=== PATIENT | male | born 1970 | race Two or more races ===

== ENCOUNTER 2025-04-22 15:24 | Outpatient (REF) | payer MEDICAID, SELFPAY ==
--- OUTSIDE RECORDS SUMMARY | 2025-04-22 16:02 | XMS_ITS | Clinical Summary ---
Author Organization [employer] Address [address] [place] [address] Care Team Providers Care Helper Marble Finisher Name Role Phone Unavailable Primary Care Provider Unavailabl e Allergies No known active allergies Medications glimepiride (Amaryl) 4 MG tabletIndication s:Type 2 diabetes mellitus without complication, without long-term current use of insulin (CMS/HCC) Take 1 tablet (4 mg) by mouth before breakfast. 30 tablet 2 04/21/2025 Active pravastatin (Pravachol) 40 MG tabletIndication s:Type 2 diabetes mellitus without complication, without long-term current use of insulin (CMS/HCC) Take 1 tablet (40 mg) by mouth Once per day. 30 tablet 2 04/21/2025 5 Active pioglitazone (Actos) 30 MG tabletIndication s:Type 2 diabetes mellitus without complication, without long-term current use of insulin (CMS/HCC) Take 1 tablet (30 mg) by mouth Once per day. 30 tablet 2 04/21/2025 Active metFORMIN XR (Glucophage-XR) 750 MG 24 hr tabletIndication s:Type 2 diabetes mellitus without complication, without long-term current use of insulin (CMS/HCC) Take 1 tablet (750 mg) by mouth 2 times daily. Do not crush, chew, or split. 60 tablet 2 04/21/2025 5 Active Encounters Date Type Department Care Team Description 04/21/2025 6:20 PM EDT Office Visit [facility] [address] [address] Eamon Grove MD Type 2 diabetes mellitus without complication, without long-term current use of insulin (CMS/HCC) (Primary Dx) 04/21/2025 Travel 02/26/2025 Telephone [facility] [address] [place] [phone] Riky Holly MD new patient appt. 02/25/2025 Population Health Risk Score [facility] () Department [address] [place] [id number] Provider, Population Health Generic from Last 3 Months Social History Tobacco Use Types Packs/Day Years Used Date Smoking Tobacco: Never Assessed Sex and Gender Information Value Date Recorded Sex Assigned at Male 04/21/2025 4:33 PM EDT Legal Sex Male 2:12 AM EDT Gender Identity Male 04/21/2025 4:33 PM EDT Sexual Orientation Straight 04/21/2025 4: 33 PM EDT Last Filed Vital Signs Vital Sign Reading Time Taken Comments Blood Pressure 131/64 04/21/2025 5:56 PM EDT Pulse 68 04/21/2025 5:56 PM EDT Temperature - - Respiratory Rate 20 04/21/2025 5:56 PM EDT Oxygen Saturation 100% 04/21/2025 5:56 PM EDT Inhaled Oxygen Concentration - - Weight 92.1 kg (203 lb) 04/21/2025 5:56 PM EDT Height - - Body Mass Index - - Plan of Treatment Upcoming Encounters Date Type Department Care Team (Late st Contact Info) Description 06/18/2025 9:30 AM EDT Office Visit [facility] [address] [place] [phone] Riky Holly MD [address] [place] [phone] Health Maintenance Due Date Last Done Comments CT Colonography 1968 Colonoscopy 1968 Colorectal Cancer Screening 1968 Depression Screening 1968 Diabetes: Hemoglobin A1C 1968 FIT DNA/Cologuard 1968 FIT 1968 FOBT 1968 HIV Screening 1968 Lipid Panel 1968 SDOH Screening 1968 Sigmoidoscopy 1968 Disability Screening 1968 Diabetes: Foot Exam 1978 Eye Exam 1978 Alcohol/Substance Use Screening 1980 Tobacco Screening 1980 Hepatitis C Screening 1986 DTaP/Tdap/Td Vaccines (1 - Tdap) 1987 Diabetes: Urine Protein Screening 1987 Hepatitis B Vaccines (1 of 3 - 19+ 3-dose series) 1987 Pneumococcal Vaccine: 50+ Ye ars (1 of 2 - PCV) 1987 Zoster Vaccines (1 of 2) 2018 COVID-19 Vaccine ( - 2023-2 5 season) 2024 Influenza Vaccine (#1) 2024 RSV Patients and Pa tients Aged 60 years or older (1 - 1-dose 75+ series) 2043 HIB Vaccines Aged Out No longer eligi ble based on patient's age to complete this topic HPV Vaccines Aged Out No longer eligi ble based on patient's age to complete this topic Hepatitis A Vaccines Aged Out No long er eligible based on patient's age to complete this topic IPV Vaccines Aged Out No longer eligi ble based on patient's age to complete this topic Meningococcal B Vaccine Aged Out No l onger eligible based on patient's age to complete this topic Meningococcal Vaccine Aged Out No siri gerri eligible based on patient's age to complete this topic RSV under 20 months Aged Out No longe r eligible based on patient's age to complete this topic Rotavirus Vaccines Aged Out No longer eligible based on patient's age to complete this topic Procedures Procedure Name Priority Date/Time Associated Diagnosis Comments POCT GLUCOSE Routine 04/21/2025 7:59 PM EDT Type 2 diabetes mellitus without complication, without long-term current use of insulin ([facility]) from Last 3 Months Results * (ABNORMAL) POCT Glucose (04/21/2025 7:59 PM EDT) Glucose Blood, POC 261(A) 60 - 200 mg/dL QC Media Lot # Comment:[id number] Lot# Expiration Date Comment:05/14/2025 Blood Capillary blood specimen / Unknown 04/21/2025 7:59 PM EDT Eamon Grove MD POINT OF CARE TEST ENTER/EDIT OR DERABLES Final Result from Last [address] [place] [place] [address] C3
[2025-04-22 16:15] LABS: MANUAL DIFF FLAG NO
[2025-04-22 16:26] LABS: Basophils Absolute Auto 0.1 X10*3/uL (0.0-0.2); Basophils Percent Auto 0.9 % (0-2); Eosinophils Absolute Auto 0.1 X10*3/uL (0.0-0.4); Eosinophils Percent Auto 1.6 % (0-4); Hematocrit 37.8 % (42.0-52.0); Imm Gran Abs Auto 0.01 X10*3/uL (0.00-0.03); Imm Gran Pct Auto 0.1 % (0.0-0.4); Lymphocytes Absolute Auto 2.6 X10*3/uL (1.2-4.9); Lymphocytes Percent Auto 33.5 % (20-40); Mean Corpuscular HGB Conc 34.4 g/dl (31.0-36.0); Mean Corpuscular Hemoglobin 30.4 pg (27.0-33.0); Mean Corpuscular Volume 88.3 fL (80.0-98.0); Mean Platelet Volume 10.3 fL (9.4-12.4); Monocytes Absolute Auto 0.5 X10*3/uL (0.1-1.2); Monocytes Percent Auto 6.6 % (2-11); Neutrophils Absolute Auto 4.4 x10*3/uL (2.0-8.3); Neutrophils Percent Auto 57.3 % (45-73); Platelet Count 294 X10*3/uL (160-400); Red Blood Count 4.28 X10*6/uL (4.60-5.80); Red Cell Distribution Width 12.9 % (11.0-16.0); White Blood Count 7.7 X10*3/uL (4.8-10.8)
[2025-04-22 16:39] LABS: Estimated Average Glucose 212 mg/dL; Total Hemoglobin (HGBA1C) 3378.2839 umol/L
[2025-04-22 16:46] LABS: Microalbum/Creatinine Ratio Ur 120.9 ug/mg cr (<30)
[2025-04-22 16:50] LABS: Alanine Aminotransferase 19 U/L (0-40); Albumin Level 4.2 g/dL (3.5-5.0); Alkaline Phosphatase 77 U/L (39-117); Anion Gap 11 (12-20); Aspartate Amino Transferase 20 U/L (5-37); Bilirubin Total 0.4 mg/dL (0.0-1.0); Blood Urea Nitrogen 22 mg/dL (9-16); Calcium 8.7 mg/dL (8.4-10.2); Carbon Dioxide 26 mmol/L (22-29); Chloride 105 mmol/L (96-108); Cholesterol 150 mg/dL (<200); Estimated Glomerular Filt Rate > 60; Glucose Random 146 mg/dL (60-115); HDL Cholesterol 51 mg/dL (>40); LDL Cholesterol Calculated 86 mg/dL (<100); Potassium 4.2 mmol/L (3.3-5.1); Sodium 138 mmol/L (135-145); Triglycerides 66 mg/dL (<150)
== END 2025-04-22 15:25 | disposition home or self-care (01) ==
LOC: HO.HHCL 15:24
PROVIDERS: Visit Provider Family Medicine
DX: E11.9 Type 2 diabetes mellitus without complications (principal)
CPT/HCPCS: 36415; 80053; 80061; 82043; 82570; 83036; 85025

== ENCOUNTER 2025-06-18 10:18 | Outpatient (REF) | payer MEDICAID, SELFPAY ==
--- OUTSIDE RECORDS SUMMARY | 2025-06-18 11:05 | XMS_ITS | Continuity of Care Document ---
Author Organization [employer] [facility] [facility] Address [address] [place], [place] Phone [phone] Care Team Providers Care Supervisor Sewing Department Name Role Phone Beatrice Rosa MD Care Team Information House Moving Supervisor U navailable JESSICA VILLA M.D. Care Team Information Rec eiver Unavailable Beatrice Rosa MD Primary Care Physician Unavailab le Problems Active Problems Provider Date Pure hypercholesterolemia Malik Vargas Onset: 05/06/2015 Tobacco user Jessica Villa M.D. Onset: 0 05/06/2015 Diabetes mellitus Jessica Villa M.D. Onset: 05/06/2015 Social History Type Date Description Comments Sex Male Sex Unknown Allergies and adverse reactions Description No Known Drug Allergies Medications Active Medications SIG Qnty Indications Ordering Provider Date Freestyle Lite TestStrips 1 strip every day 100units E11.8 Jessica Villa M.D. 05/06/2015 [id number] Tablets 2 tab by mouth every day 60tabs E11.8 Jessica Villa M.D. 05/06/2015 Metformin HCL [id number] Tablets ER 24HR 1 tab by mouth twice a day Beatrice Rosa MD Pioglitazone [id number] Tablets take 1 tablet once daily Unknown Pravastatin [id number] Tablets 1 by mouth every day Beatrice Rosa MD Ciprodex0.3-0.1% Suspension Unknown History Medications Bupropion HCL ER (SR)150mg Tablets ER 12HR 1 by mouth every day 90tabs 305.1 Jessica Villa M.D. 05/06/2015 - 07/08/2015 [id number] Capsules Unknown - 05/06/2015 Afluria Preservative Free0.5ml Christal Unknown - 05/06/2015 [id number] Tablets take 1 tablet by mouth once daily Unknown - 05/06/2015
--- OUTSIDE RECORDS SUMMARY | 2025-06-18 11:05 | XMS_ITS | Clinical Summary ---
Author Organization [employer] Address [address] [facility] [address] [place] [address] Care Team Providers Care Chisel Trimmer Name Role Phone Riky Holly MD Primary Care Provide r Allergies No known active allergies Medications lisinopril 5 MG tabletIndications: Type 2 diabetes mellitus without complication, without long-term current use of insulin (CMS/[facility]),Microalb uminuria Take 1 tablet (5 mg) by mouth Once per day. 30 tablet 11 06/18/20 026 Active glimepiride (Amaryl) 4 MG tabletIndications: Type 2 diabetes mellitus without complication, without long-term current use of insulin (CMS/HCC) Take 1 tablet (4 mg) by mouth before breakfast . 30 tablet 2 06/18/20 25 025 Active metFORMIN XR (Glucophage-XR) 750 MG 24 hr tabletIndications: Type 2 diabetes mellitus without complication, without long-term current use of insulin (CMS/[facility]) Take 1 tablet (750 mg) by mouth 2 times daily. Do not crush, chew, or split. 60 tablet 2 06/18/20 25 025 Active pioglitazone (Actos) 30 MG tabletIndications: Type 2 diabetes mellitus without complication, without long-term current use of insulin (CMS/HCC) Take 1 tablet (30 mg) by mouth Once per day. 30 tablet 2 06/18/20 25 025 Active pravastatin (Pravachol) 40 MG tabletIndications: Mixed hyperlipidemia Take 1 tablet (40 mg) by mouth Once per day. 30 tablet 2 06/18/20 25 025 Active FREESTYLE LITE test stripIndications:T ype 2 diabetes mellitus without complication, without long-term current use of insulin ([facility]) Use to test blood sugar 2 times daily 100 each 12 06/18/20 25 026 Active Lancets miscIndications:Ty pe 2 diabetes mellitus without complication, without long-term current use of insulin ([facility]) Use to test blood sugar 2 times daily 100 each 06/18/20 25 Active Alcohol Swabs 70 % padsIndications:Ty pe 2 diabetes mellitus without complication, without long-term current use of insulin ([facility]) Use to test blood sugar 2 times daily 100 each 06/18/20 25 Active Blood Glucose Monitoring Suppl (FreeStyle [place] Lite) w/Device kitIndications:Typ e 2 diabetes mellitus without complication, without long-term current use of insulin ([facility]) Use to test blood sugar 2 times daily 1 kit 06/18/20 25 Active glimepiride (Amaryl) 4 MG tabletIndications: Type 2 diabetes mellitus without complication, without long-term current use of insulin ([facility]) Take 1 tablet (4 mg) by mouth before breakfast . 30 tablet 2 04/21/20 025 Discontinued(Re order (will not trigger notification to Pharmacy)) pravastatin (Pravachol) 40 MG tabletIndications: Type 2 diabetes mellitus without complication, without long-term current use of insulin ([facility]) Take 1 tablet (40 mg) by mouth Once per day. 30 tablet 2 04/21/20 025 Discontinued(Re order (will not trigger notification to Pharmacy)) pioglitazone (Actos) 30 MG tabletIndications: Type 2 diabetes mellitus without complication, without long-term current use of insulin ([facility]) Take 1 tablet (30 mg) by mouth Once per day. 30 tablet 2 04/21/20 025 Discontinued(Re order (will not trigger notification to Pharmacy)) metFORMIN XR (Glucophage-XR) 750 MG 24 hr tabletIndications: Type 2 diabetes mellitus without complication, without long-term current use of insulin ([facility]) Take 1 tablet (750 mg) by mouth 2 times daily. Do not crush, chew, or split. 60 tablet 2 04/21/20 25 025 Discontinued(Re order (will not trigger notification to Pharmacy)) Active Problems Problem Noted Date Diagnosed Date Type 2 diabetes mellitus wit hout complication, without long-term current use of insulin 06/18/2025 Assessment & Plan (06/18/2025 9:47 AM EDT): Patient here to establish his primary prison Diabetic Hgb A1c today: 8.7 Glucometer: did not bring one. Sent one to Pharmacy Microalbumin: 04/22/2025 120. Will start Low dose Lisinopril Eye exam: referred Regimen: Metformin 750 mg po BID, Glimepiride 4 mg daily, Actos 30 mg po daily Plan: Start Lisinopril 5 mg po daily ( microalbuminuria ) Hyperlipidemia 06/18/2025 Assessment & Plan (06/18/2025 9:25 AM EDT): Pt with elevated lipids Lab Results Component Value Date TRIG 66 04/22/2025 CHOL 150 04/22/2025 LDLCHOLCAL 86 04/22/2025 HDL 51 04/22/2025 On Pravastatin 40 mg po daily Plan: continue current regimen Preventative health care 06/18/2025 Assessment & Plan (06/18/2025 9:51 AM EDT): PSA: ordered Colorectal cancer screen: refused, no specific reason Counseled about colon cancer Obesity (BMI 30-39.9) 06/18/2025 Assessment & Plan (06/18/2025 9:36 AM EDT): Patient has been counseled and educated about diet and exercise. Personal goal of weight loss discussedPatient has comorbidity of: DM Dietary Recommendations: Fruits, vegetables, whole grains, protein foods, and fat-free or low-fat dairy products are healthy choices. Eat different types of protein foods in your diet. This can include seafood, lean meats, poultry, beans, peas, lentils, nuts, seeds, soy products, and eggs. Limit foods and beverages higher in added sugars, saturated fat, and sodium. Exercise Recommendations: At least 150 minutes of moderate-intensity physical activity per week, or an equivalent combination of moderate- and vigorous-intensity activity Smoker 06/18/2025 Assessment & Plan (06/18/2025 9:59 AM EDT): Contemplative, not ready to quit yet 1 ppd > 40 yrs 40 pack years Referred to lung cancer screen progrtam at [facility] Agreeable to have low dose CT Encounters Date Type Department Care Team Description 06/18/2025 9:30 AM EDT Office Visit [facility] [address] [place] [phone] Riky Holyl MD Type 2 diabetes mellitus without complication, without long-term current use of insulin (CMS/HCC) (Primary Dx); Mixed hyperlipidemia; Microalbuminuria; Preventative health care; Colon cancer screening; Obesity (BMI 30-39.9); Dietary counseling; Exercise counseling; Smoker; Encounter for immunization 06/18/2025 Travel 06/17/2025 Telephone [facility] [address] [place] [phone] Shelley Gallo [place] 06/11/2025 Patient Outreach [facility] [address] [place] [address] Riky Holly MD Pre-visit Planning ([facility] unable to reach [facility]) 04/24/2025 Results Follow-Up [facility] [address] [place] [phone] Eamon Grove MD POCT Glucose, Lipid Panel, Standard, CBC auto differential, Additional followed-up results: 3 04/21/2025 6:20 PM EDT Office Visit [facility] [address] [place] [phone] Eamon Grove MD Type 2 diabetes mellitus without complication, without long-term current use of insulin (CMS/HCC) (Primary Dx) 04/21/2025 Travel from Last 3 Months Immunizations Immunization Administration Dates Next Due Pneumococcal Conjugate PCV 20 06/18/2025 Tdap 06/18/2025 Social History Tobacco Use Types Packs/Day Years Used Date Smoking Tobacco: Every Day Cigarettes 1 40.6 Started: 1984 Smokeless Tobacco: Never Tobacco Cessation:Counseling Given: Yes Alcohol Use Standard Drinks/Week Comments Never 0 (1 standard drink = 0.6 oz pur e alcohol) Depression Answer Date Recorded Patient Health Questionnaire-9 Score 0 06/18/2025 Patient Health Questionnaire-9 Score 0 06/18/2025 Last PHQ-9: Questionnaire Data Not on file 0 06/18/2025 Housing Stability Answer Date Recorded What is your housing situation today? I have tello [place] 06/18/[address] you li ve. Do you have problems with any of the following? None of the above 06/18/2025 Food Insecurity Answer Date Recorded Within the past 12 months, y ou worried that your food would run out before you got money to buy more: Never True 06/18/2025 Within the past 12 months,th e food you bought just didn't last and you didn't have enough money to get more: Never True Transportation Answer Date Recorded In the past 12 months, has l ack of transportation kept you from medical appts, meetings, work or from getting things needed for daily living? No 06/18/2025 Utilities Answer Date Recorded In the past 12 months, has t he electric, gas, oil or water company threatened to shut off services in your home? No 06/18/2025 Depression Answer Date Recorded Patient Health Questionnaire-2 Score 0 06/18/2025 Internet Access Answer Date Recorded Internet Access Q1 Yes 06/18/2025 Internet Access Q2 Not on file 06/18/2025 Sex and Gender Information Value Date Recorded Sex Assigned at Male 04/21/2025 4:33 PM EDT Legal Sex Male 2:12 AM EDT Gender Identity Male 04/21/2025 4:33 PM EDT Sexual Orientation Straight 04/21/2025 4: 33 PM EDT Occupation Industry Job Start Date Job End Date [employer] Other Not on file Not on file Not on file Last Filed Vital Signs Vital Sign Reading Time Taken Comments Blood Pressure 124/68 06/18/2025 9:25 AM EDT Pulse 62 06/18/2025 9:25 AM EDT Temperature 36.8 C (98.2 F) 06/18/2025 9:25 AM EDT Respiratory Rate 14 06/18/2025 9:25 AM EDT Oxygen Saturation 99% 06/18/2025 9:25 AM EDT Inhaled Oxygen Concentration - - Weight 91.5 kg (201 lb 12.8 oz) 06/18/2025 9:25 AM EDT Height 172.7 cm (5' 8 ) 06/18/2025 9:25 AM EDT Body Mass Index 30.68 06/18/2025 9:25 AM EDT Plan of Treatment Health Maintenance Due Date Last Done Comments CT Colonography 1968 Colonoscopy 1968 Colorectal Cancer Screening 1968 FIT DNA/Cologuard 1968 FIT 1968 FOBT 1968 HIV Screening 1968 Sigmoidoscopy 1968 Diabetes: Foot Exam 1978 Eye Exam 1978 Alcohol/Substance Use Screening 1980 Hepatitis C Screening 1986 Hepatitis B Vaccines (1 of 3 - 19+ 3-dose series) 1987 Lung Cancer Screening 2018 Zoster Vaccines (1 of 2) 2018 COVID-19 Vaccine ( - 2023-2 5 season) 2024 Influenza Vaccine (#1) 2025 Diabetes: Hemoglobin A1C 09/18/2025 025, 04/22/2025 Diabetes: Urine Protein Screening 04/22/2026 04/22/2025 Lipid Panel 04/22/2026 04/22/2025 Depression Screening 06/18/2026 06/18/2025, 06/18/2025 Disability Screening 06/18/2026 06/18/2025 SDOH Screening 06/18/2026 06/18/2025 Tobacco Screening 06/18/2026 06/18/2025 DTaP/Tdap/Td Vaccines (2 - T d or Tdap) 06/18/2035 06/18/2025 RSV Patients and Patients Aged 60 years or older (1 - 1-dose 75+ series) 2043 Pneumococcal Vaccine: 50+ Years Completed 06/18/2025 HIB Vaccines Aged Out No longer eligi [...] Name Priority Date/Time Associated Diagnosis Comments POCT GLYCATED HEMOGLOBIN, TOTAL Routine 06/18/2025 9:37 AM EDT Type 2 diabetes mellitus without complication, without long-term current use of insulin (CMS/HCC) POCT GLUCOSE Routine 06/18/2025 9:37 AM EDT Type 2 diabetes mellitus without complication, without long-term current use of insulin (CMS/HCC) ALBUMIN, RANDOM URINE W/CREATININE Routine 04/22/2025 3:30 PM EDT Type 2 diabetes mellitus without complication, without long-term current use of insulin (CMS/HCC) HEMOGLOBIN A1C Routine 04/22/2025 3:30 PM EDT Type 2 diabetes mellitus without complication, without long-term current use of insulin (CMS/HCC) COMPREHENSIVE METABOLIC PANEL Routine 04/22/2025 3:30 PM EDT Type 2 diabetes mellitus without complication, without long-term current use of insulin (CMS/HCC) LIPID PANEL, STANDARD Routine 04/22/2025 3:30 PM EDT Type 2 diabetes mellitus without complication, without long-term current use of insulin (CMS/HCC) CBC WITH AUTO DIFFERENTIAL Routine 04/22/2025 1:50 PM EDT Type 2 diabetes mellitus without complication, without long-term current use of insulin (CMS/HCC) POCT GLUCOSE Routine 04/21/2025 7:59 PM EDT Type 2 diabetes mellitus without complication, without long-term current use of insulin (CMS/HCC) from Last 3 Months Results * (ABNORMAL) POCT A1C (06/18/2025 9:37 AM EDT) Hemoglobin A1C 8.7(A) 4.0 - 5.7 % Blood 06/18/2025 9:37 AM EDT Riky Cm MD POINT OF CARE TEST EN TER/EDIT ORDERABLES Final Result * POCT glucose manually resulted (06/18/2025 9:37 AM EDT) Only the most recent of2 resultswithin the time period is included. Glucose Blood, POC 192 60 - 200 mg/dL Blood Capillary blood specimen / Unknown 06/18/2025 9:37 AM EDT Riky Cm MD POINT OF CARE TEST EN TER/EDIT ORDERABLES Final Result * (ABNORMAL) Albumin, Random Urine W/Creatinine (04/22/2025 3:30 PM EDT) Creatinine, Urine 259.70 mg/dL [facility] Microalbumin Urine 314.0 mg/L [facility] Microalbum Creatinine Ratio Ur 120.9(H) <30 ug/mg cr [facility] Comment:Albumin/Creatinine R atio Reference Ranges: Normal: < 30 ug/mg creatinine Microalbuminuria: 30 - 300 ug/mg creatinineClinical Albuminuria: > 300 ug/mg creatinine Urine (Urine, Random) 04/22/2025 3:30 PM EDT 04/22/2025 4:11 PM EDT Eamon Grove MD LAB URINE ORDERABLES Final Resul t [facility] [address] [place] [phone] * (ABNORMAL) Hemoglobin A1c (04/22/2025 3:30 PM EDT) Hemoglobin A1c 9.0(H) <6.0 % [facility] Comment:Hemoglobin A1C Refer ence Range Adults: 4.8 - 6.0 % Non diabetic: < 6.0 % Goal: < 7.0 %Additional Action Suggested: > 8.0 %Note: Hemoglobin A1c results are invalid for patients with abnormal amounts of HbF. Blood transfusions may impact the HbA1c concentration in the patient sample. Estimated Average Glucose 212 mg/dL [facility] Comment:eAG = Estimated ave rage glucose which is %A1C expressed asaverage glucose, using the formula of the [id number] Glucose study (ADAG), Diabetes Care, Vol.31,#8,Jun. 2007 Blood Venous blood specimen / Unknown 04/22/2025 3:30 PM EDT 04/22/2025 4:12 PM EDT us Eamon Grove MD LAB BLOOD ORDERABLES Final Resul t [facility] [address] [place] [phone] * Lipid Panel, Standard (04/22/2025 3:30 PM EDT) Triglycerides 66 <150 mg/dL [facility] Comment:Desirable Triglyceri de: less than 150 mg/dLBorderline High Triglyceride 150-199 mg/dLHigh Triglyceride: 200-499 mg/dLVery High Triglyceride: greater than or equal to 5OO mg/dL Cholesterol 150 <200 mg/dL [facility] Comment:Desirable Cholestero l: less than 200 mg/dLBorderline High Cholesterol: 200-239 mg/dLHigh Cholesterol: greater than 239 mg/dL LDL Cholesterol Calculated 86 <100 mg/dL [facility] Comment:Desirable LDL: less than 100 mg/dLNear Optimal/Above Optimal LDL: 110- 129 mg/dLBorderline High LDL: 130-159 mg/dLHigh LDL: 160-189 mg/dLVery High LDL: greater than or equal to 190 mg/dL HDL Cholesterol 51 >40 mg/dL [facility] Comment:Desirable HDL: great er than 40 mg/dL Note: This HDL assay may give artificially low results in patients with liver disease. Blood Venous blood specimen / Unknown 04/22/2025 3:30 PM EDT 04/22/2025 4:12 PM EDT Eamon Grove MD LAB BLOOD ORDERABLES Final Resul t [facility] [address] [place] [phone] * (ABNORMAL) Comprehensive Metabolic Panel (04/22/2025 3:30 PM EDT) Sodium 138 135 - 145 mmol/L [facility] Potassium 4.2 3.3 - 5.1 mmol/L [facility] Chloride 105 96 - 108 mmol/L [facility] Carbon Dioxide 26 22 - 29 mmol/L [facility] Anion Gap 11(L) 12 - 20 [facility] Urea Nitrogen (BUN) 22(H) 9 - 16 mg/dL [facility] Creatinine, Serum 0.89 0.5 - 1.4 mg/dL [facility] Estimated Glomerular Filt Rate >60 [facility] Comment:Chronic Kidney Disea se: Estimated GFR < 60 mL/min/[id number] Kidney Disease: Estimated GFR < 15 mL/min/1.73m2 Glucose 146(H) 60 - 115 mg/dL [facility] Calcium 8.7 8.4 - 10.2 mg/dL [facility] Bilirubin, Total 0.4 0.0 - 1.0 mg/dL [facility] Aspartate Amino Transferase 20 5 - 37 U/L [facility] Alanine Aminotransferase 19 0 - 40 U/L [facility] Total Protein 7.0 6.5 - 8.0 g/dL [facility] Albumin Level 4.2 3.5 - 5.0 g/dL [facility] Alkaline Phosphatase 77 39 - 117 U/L [facility] Blood Venous blood specimen / Unknown 04/22/2025 3:30 PM EDT 04/22/2025 4:12 PM EDT Eamon Grove MD LAB BLOOD ORDERABLES Final Resul t [facility] [address] [place], [place] [phone] * (ABNORMAL) CBC auto differential (04/22/2025 1:50 PM EDT) White Blood Count 7.7 4.8 - 10.8 X10*3/uL [facility] Red Blood Count 4.28(L) 4.60 - 5.80 X10*6/uL [facility] Hemoglobin 13.0(L) 14.0 - 18.0 g/dl [facility] Hematocrit 37.8(L) 42.0 - 52.0 % [facility] Mean Corpuscular Volume 88.3 80.0 - 98.0 fL [facility] Mean Corpuscular Hemoglobin 30.4 27.0 - 33.0 pg [facility] Mean Corpuscular HGB Conc 34.4 31.0 - 36.0 g/dl [facility] Red Cell Distribution Width 12.9 11.0 - 16.0 % [facility] Platelet Count 294 160 - 400 X10*3/uL [facility] Mean Platelet Volume 10.3 9.4 - 12.4 fL [facility] Neutrophils Percent Auto 57.3 45 - 73 % [facility] Imm Gran Pct Auto 0.1 0.0 - 0.4 % [facility] Lymphocytes Percent Auto 33.5 20 - 40 % [facility] Monocytes Percent Auto 6.6 2 - 11 % [facility] Eosinophils Percent Auto 1.6 0 - 4 % [facility] Basophils Percent Auto 0.9 0 - 2 % [facility] NRBC Pct Auto 0.0 0.0 - 0.2 /100WBC [facility] Neutrophils Absolute Auto 4.4 2.0 - 8.3 x10*3/uL [facility] Imm Gran Abs Auto 0.01 0.00 - 0.03 X10*3/uL [facility] Lymphocytes Absolute Auto 2.6 1.2 - 4.9 X10*3/uL [facility] Monocytes Absolute Auto 0.5 0.1 - 1.2 X10*3/uL [facility] Eosinophils Absolute Auto 0.1 0.0 - 0.4 X10*3/uL [facility] Basophils Absolute Auto 0.1 0.0 - 0.2 X10*3/uL [facility] NRBC Abs Auto 0.000 0.0 - 0.012 X10*3/uL [facility] Blood Venous blood specimen / Unknown 04/22/2025 1:50 PM EDT 04/22/2025 4:12 PM EDT us Eamon Grove MD LAB BLOOD ORDERABLES Final Resul t [facility] [address] [place] [address] [phone] from Last 3 Months Insurance [id number] Care Teams Chisel Trimmer Relationship Specialty Start Date End Date Riky Holly MD [address] [place] [phone] PCP - General Internal Medicine 06/18/25
--- OUTSIDE RECORDS SUMMARY | 2025-06-18 11:05 | XMS_ITS | Clinical Summary ---
Author Organization [address] [facility] Address [address] [place] [address] Phone Care Team Providers Care Carpet Inspector Name Role Phone Physician, Pcp Unknown Primary Care Provider Meghana vailable Allergies No known active allergies Medications ciclopirox (PENLAC) 8 % solution Apply topically at bedtime. Apply over nail and surrounding skin. Apply daily over previous coat. After seven (7) days, may remove with alcohol and continue cycle. 6.6 mL 05/31/20 25 Encounters Date Type Department Care Team Description 06/01/2025 2:30 PM EDT Office Visit Orthopedic Surgery [facility] [address] [facility] [address] [place] [phone] Kevin Eisenberg DPM Controlled type 2 diabetes with neuropathy (CMS/[facility] V24, CMS/HCC V28) (Primary Dx); Pain in toes of both feet; Hammertoes of both feet; Dermatophytosis, nail from Last 3 Months Social History Tobacco Use Types Packs/Day Years Used Date Smoking Tobacco: Never Assessed Sex and Gender Information Value Date Recorded Sex Assigned at Not on file Legal Sex Male 11:17 AM EST Gender Identity Not on file Sexual Orientation Not on file Last Filed Vital Signs Vital Sign Reading Time Taken Comments Blood Pressure - - Pulse - - Temperature - - Respiratory Rate - - Oxygen Saturation - - Inhaled Oxygen Concentration - - Weight 51.7 kg (114 lb) 03/02/2025 2:40 PM EDT Height 208.3 cm (6' 10 ) 03/02/2025 2:40 PM EDT Body Mass Index 11.92 03/02/2025 2:40 PM EDT Plan of Treatment Upcoming Encounters Date Type Department Care Team ([facility] st Contact Info) Description 09/01/2025 2:30 PM EDT Office Visit Orth[facility] - [place] [address] [facility] [address] [place] [address] Kevin Eisenberg, DPM [address] [facility] [address] [place] [address] Health Maintenance Due Date Last Done Comments Diabetes: Annual Foot Exam 1978 Diabetes: Annual Retina Eye Exam 1978 DTaP,Tdap,and Td Vaccines (1 - Tdap) 1987 Hepatitis B Vaccines (1 of 3 - 19+ 3-dose series) 1987 Pneumococcal Vaccine: 50+ Ye ars (1 of 2 - PCV) 1987 Zoster Vaccines (1 of 2) 2018 COVID-19 Vaccine (1 - 2023-2 5 season) 2024 Depression Screening 11/26/2024 Colorectal Cancer Screening: Colonoscopy 12/23/2024 HIV Screening 12/23/2024 Hepatitis C Screening 12/23/2024 Social Influencers of Health Screening 12/23/2024 Diabetes: Annual Urine Albumin-Creatinine Ratio (uACR) 06/02/2025 Influenza Vaccine (#1) 2025 Diabetes: Blood Sugar Contro l Test (HGBA1C) 10/23/2025 04/22/2025 Diabetes: Annual GFR (Glomer ular Filtration Rate) 04/22/2026 04/22/2025 Cholesterol Screening (Lipid Panel) 04/22/2030 04/22/2025 HIB Vaccines Aged Out No longer eligi [...] on patient's age to complete this topic MMR Vaccines Aged Out No longer eligi ble based on patient's age to complete this topic Meningococcal ACWY Vaccine Aged Out N o longer eligible based on patient's age to complete this topic Meningococcal B Vaccine Aged Out No l onger eligible based on patient's age to complete this topic RSV Immunization Patients Un kiarra 20 months Aged Out No longer eligible b ased on patient's age to complete this topic Varicella Vaccines Aged Out No longer eligible based on patient's age to complete this topic Insurance MEDICAID - [place] Care Teams Carpet Inspector Relationship Specialty Start Date End Date Physician, Pcp Unknown PCP - General 12/23/24
[2025-06-18 13:06] LABS: HBS Num1 0.62 mIU/mL (0-7.99); HBc Num1 0.09 S/CO (0.00-0.79); HBsAGNum1 0.43 S/CO (0.00-0.99); HIV Num 1 0.06 S/CO (0.00-0.99); Hepatitis B Surface Antigen Negative (Negative); ~HepC Num1 0.09 S/CO (0.00-0.79); ~Hepatitis B Surface Antibody NONREACTIVE (Nonreactive); ~Hepatitis C Antibody Nonreactive (Nonreactive)
== END 2025-06-18 10:19 | disposition home or self-care (01) ==
LOC: HO.HHCL 10:18
PROVIDERS: PCP Internal Medicine; Visit Provider Internal Medicine
DX: Z11.4 Encounter for screening for human immunodeficiency virus [HIV] (principal); Z11.59 Encounter for screening for other viral diseases; Z00.00 Encounter for general adult medical examination without abnormal findings
CPT/HCPCS: 36415; 84153; 86704; 86706; 86803; 87340; 87389